=== PATIENT | female | born 2000 | race Hispanic/Latino ===

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

== ENCOUNTER 2024-09-29 06:24 | Emergency (ER) | payer OTHER ==
[~2024-09-29] VITALS: Ht 149.9 cm; Wt 61.3 kg
[~2024-09-29 06:24] MED LIST changes: +CEPH500C PO
[2024-09-29] MEDS ORDERED: HOME MED LIST COMPLETE! XX SCH (09:05)
[2024-09-29] MEDS: NS (Normal Saline) 0.9% 1,000 ML IV ONE (09:45)
[2024-09-29 09:53] LABS: BASO # 0.0 10^3/uL (0.0-0.2); BASO % 0.3 % (0.0-1.0); EOS # 0.1 10^3/uL (0.0-0.5); EOS % 0.5 % (0.0-3.0); LYMPH # 1.6 10^3/uL (1.5-5.0); LYMPH % 12.7 % (24.0-44.0); MONO # 0.7 10^3/uL (0.0-0.8); MONO % 5.7 % (2.0-8.0); NEUTROPHILS # 10.4 10^3/uL (1.5-8.5); NEUTROPHILS % 80.6 % (36.0-66.0); PLATELET COUNT, AUTOMATED 317 10^3/uL (150-450)
[2024-09-29 10:19] LABS: CALCIUM LEVEL 9.3 MG/DL (8.5-10.1); CARBON DIOXIDE LEVEL 22 MMOL/L (20-31); CHLORIDE LEVEL 108 MMOL/L (98-107); CREATININE FOR GFR 0.54 MG/DL (0.55-1.30); GLOMERULAR FILTRATION RATE > 90.0 (>60); POTASSIUM SERUM 5.1 MMOL/L (3.5-5.1); SODIUM LEVEL 141 MMOL/L (136-145)
[2024-09-29 11:00] VITALS: BP 106/59; O2SAT 100
[2024-09-29 11:15] VITALS: TEMP 96.8
== END 2024-09-29 11:17 | disposition home or self-care (01) ==
LOC: M ED 08:26
DX: R55 Syncope and collapse (principal); S00.31XA Abrasion of nose, initial encounter; Y92.9 Unspecified place or not applicable; Y93.9 Activity, unspecified; Y99.9 Unspecified external cause status; R00.1 Bradycardia, unspecified; F17.290 Nicotine dependence, other tobacco product, uncomplicated